=== PATIENT | female | born 1950 | race Native Hawaiian/Other Pacific Islander ===

== ENCOUNTER 2023-04-04 07:35 | Day surgery (SDC) | payer MEDICARE ==
[~2023-04-04 07:35] MED LIST: Gleevec100 MG PO; Prenatal Vitam1 EAC2; UBID10 PO; VITAMIN D34000 UNIT PO; VOLTAREN100 GM TOP; [UNRECOGNIZED DRUG - OTHER]
== END 2023-04-11 23:10 | disposition home or self-care (01) ==
LOC: MOI US 07:35
DX: N63.21 Unspecified lump in the left breast, upper outer quadrant (principal)
CPT/HCPCS: 19083; 77065; 88305; 88341; 88342; A4648

== ENCOUNTER 2025-02-08 08:43 | Emergency (ER) | payer MEDICARE ==
[~2025-02-08] VITALS: Ht 165.1 cm; Wt 78.9 kg
[2025-02-08 09:12] LABS: BASOPHILS ABSOLUTE AUTO 0.01 K/mm3 (0.00-0.23); BASOPHILS PERCENT AUTO 0 % (0-2); EOSINOPHILS ABSOLUTE AUTO 0.04 K/mm3 (0.00-0.68); EOSINOPHILS PERCENT AUTO 1 % (0-6); Hematocrit 18.9 % (33.0-51.0); IMMATURE GRAN ABSOLUTE AUTO 0.01 K/mm3 (0.00-0.10); IMMATURE GRAN PERCENT AUTO 0 % (0-1); LYMPHOCYTES ABSOLUTE AUTO 0.45 K/mm3 (0.84-5.20); LYMPHOCYTES PERCENT AUTO 15 % (21-46); MONOCYTES ABSOLUTE AUTO 0.34 K/mm3 (0.16-1.47); MONOCYTES PERCENT AUTO 11 % (4-13); Mean Corpuscular HGB Conc 30.7 g/dL (31.5-36.5); Mean Corpuscular Volume 91 fL (80-100); NEUTROPHILS ABSOLUTE AUTO 2.15 K/mm3 (1.96-9.15); NEUTROPHILS PERCENT AUTO 72 % (41-73); NRBC ABSOLUTE 0.00 K/mm3 (0.00-0.02); NRBC Auto 0.0 /100 WBC (0.0-0.2); Platelet Count 118 K/mm3 (150-400); RDW Coefficient Variation 22.1 % (11.7-14.2); RDW Standard Deviation 71.1 fL (35.1-46.3)
[2025-02-08 09:20] LABS: Hemoglobin 5.8 g/dL (11.5-16.0)
[2025-02-08 09:57] LABS: Alanine Aminotransfer (ALT/SGP 31.0 U/L (12-78); Albumin, Blood 3.0 g/dL (3.4-5.0); Albumin/Globulin Ratio 0.7 (0.8-1.8); Anion Gap 10.0 mmol/L (3-11); Aspartate Aminotrans (AST/SGOT 31.0 U/L (12-37); Bilirubin, Total 0.5 mg/dL (0.1-1.0); Blood Urea Nitrogen 13.0 mg/dL (8-24); CO2, Blood 27.0 mmol/L (21-32); Calcium, Blood 8.3 mg/dL (8.5-10.1); Chloride, Blood 106.0 mmol/L (98-108); Creatinine, Blood 1.18 mg/dL (0.40-1.00); Globulin, Blood 4.3 g/dL (2.2-4.0); Glucose, Blood 107.0 mg/dL (70-99); Potassium, Blood 3.3 mmol/L (3.5-5.5); Sodium, Blood 140.0 mmol/L (136-145); Total Protein, Blood 7.3 g/dL (6.4-8.2)
[2025-02-08] MEDS ORDERED: Potassium Chloride 10 Meq Tablet SA PO ONE (10:30)
[2025-02-08] MEDS ORDERED: NS 1,000 ML IV SCH (11:00)
[2025-02-08 15:20] LABS: IMMATURE RETIC FRACTION 16.4 % (2.3-16.0); RETIC HGB EQUIVALENT 17.6 pg (28.20-36.60); RETICULOCYTE ABSOLUTE 0.0431 M/mm3 (0.0200-0.1100); RETICULOCYTE COUNT PERCENT 2.06 % (0.50-2.50)
[2025-02-08 16:00] VITALS: BP 159/69
[2025-02-08 16:50] LABS: Ferritin, Serum 16.0 ng/mL (8-252); Total Iron Binding Capacity 485.0 ug/dL (250-450)
== END 2025-02-08 16:15 | disposition home or self-care (01) ==
LOC: ER 08:43
PROVIDERS: Emergency Medicine; Student in an Organized Health Care Education/Training Program
DX: D64.9 Anemia, unspecified (principal); E61.1 Iron deficiency; C92.10 Chronic myeloid leukemia, BCR/ABL-positive, not having achieved remission; Z88.2 Allergy status to sulfonamides; Z88.1 Allergy status to other antibiotic agents; Z79.899 Other long term (current) drug therapy
CPT/HCPCS: 36430; 80053; 82607; 82728; 82746; 83540; 83550; 83880; 84484; 85025; 85045; 86850; 86900; 86901; 86923; 93005; 93010; 96360; 99284-25; A9270; J7030; P9016

== ENCOUNTER 2025-04-21 13:30 | Emergency (ER) | payer MEDICARE ==
[~2025-04-21] VITALS: Ht 165.1 cm; Wt 79.4 kg
[2025-04-21 13:36] VITALS: BP 135/64
[2025-04-21] MEDS ORDERED: Dexamethasone Sod Phos 10 MG/ML 1ML VIAL PO ONE (14:20)
[2025-04-21] MEDS ORDERED: TIZANIDINE HCL2 M1 PO (14:23)
[2025-04-21] MEDS ORDERED: IBUP800 PO (14:23)
[2025-04-21] MEDS ORDERED: Lidocaine 4% 1 Patch TOP ONE (14:25)
== END 2025-04-21 15:08 | disposition home or self-care (01) ==
LOC: ER 13:30
DX: M54.17 Radiculopathy, lumbosacral region (principal); Z88.2 Allergy status to sulfonamides; Z88.8 Allergy status to other drugs, medicaments and biological substances; Z79.899 Other long term (current) drug therapy; Z87.891 Personal history of nicotine dependence
CPT/HCPCS: 99283; A9270; J1100